=== PATIENT | female | born 1990 | race African-American/Black ===

== ENCOUNTER 2016-10-27 17:41 | Emergency (ER) | payer OTHER ==
[~2016-10-27] VITALS: Ht 165.1 cm; Wt 96.2 kg
[~2016-10-27 17:41] MED LIST: FERROUS GLUCON324 MG PO; KEFLEX500 MG PO; MOTRIN800 MG PO; NAPROSYN500 MG PO; PNV FOLIC ACID1 EACH PO; PRENATAL TABLE1 EAC3 PO; VALTREX50 MG/ML PO; ZOFRAN ODT4 MG PO; ZOFRAN4 MG PO; ZOVIRAX400 MG PO
[2016-10-27 17:44] VITALS: BP 108/81
[2016-10-27 18:11] LABS: HEMATOCRIT 34.6 % (36.0-46.0); MCH 29.1 PG (29.0-34.0); MCHC 32.1 G/DL (30.0-36.0); MCV 90.6 FL (83-99); MEAN PLAT.VOLUME 8.9 uM^3 (9.5-12.4); PLATELET COUNT 468 K/uL (156-360); RBC DIS.WIDTH-CV 17.4 % (11.8-14.6); RBC DIS.WIDTH-SD 54.7 % (39-53); RED BLOOD COUNT 3.82 M/uL (3.80-5.20); WHITE BLOOD COUNT 8.3 K/uL (4.1-10.2)
[2016-10-27 18:20] LABS: CHLORIDE 103 mEq/L (99-109); POTASSIUM 4.1 mEq/L (3.7-5.4); SODIUM 136 mEq/L (136-147)
[2016-10-27 18:22] LABS: GLUCOSE 87 mg/dL (70-99)
[2016-10-27 18:23] LABS: ANION GAP 9 MEQ/L (2-14)
[2016-10-27 18:26] LABS: GFR ESTIMATE (CALCULATED) > 59 mL/min/; UREA NITROGEN (BUN) 9 mg/dL (9-23)
[2016-10-27 18:34] LABS: QUANTITATIVE HCG < 4.0 MIU/ML
[2016-10-27 18:51] LABS: ADD MIUA? YES; BILIRUBIN NEGATIVE; BLOOD MODERATE; COLOR YELLOW ((YELLOW)); GLUCOSE (STRIP) NEGATIVE; KETONES NEGATIVE; LEUKOCYTES SMALL; NITRITE NEGATIVE; PROTEIN (STRIP) NEGATIVE; SPECIFIC GRAVITY 1.012 (1.000-1.030); UROBILINOGEN 0.2 MG/DL (0.2-1.0)
[2016-10-27 19:53] LABS: BACTERIA 1+; EPITHELIAL CELLS 2+; MUCUS 1+; RED BLOOD CELLS 0-5 /HPF (0-5); UCUL ADDED? NO
[2016-10-27 19:54] LABS: CASTS NONE SEEN /LPF; CRYSTALS NONE SEEN
== END 2016-10-27 20:00 | disposition left against medical advice (07) ==
LOC: EME 17:41
DX: N93.9 Abnormal uterine and vaginal bleeding, unspecified (principal); Z53.21 Procedure and treatment not carried out due to patient leaving prior to being seen by health care provider
CPT/HCPCS: 80048; 81003; 84702; 85027

== ENCOUNTER 2016-11-08 17:22 | Emergency (ER) | payer OTHER ==
[~2016-11-08] VITALS: Ht 165.1 cm; Wt 96.0 kg
[2016-11-08 18:30] LABS: HEMATOCRIT 36.3 % (36.0-46.0); MCH 28.7 PG (29.0-34.0); MCHC 31.4 G/DL (30.0-36.0); MCV 91.4 FL (83-99); MEAN PLAT.VOLUME 9.2 uM^3 (9.5-12.4); PLATELET COUNT 451 K/uL (156-360); RBC DIS.WIDTH-CV 16.7 % (11.8-14.6); RBC DIS.WIDTH-SD 53.9 % (39-53); RED BLOOD COUNT 3.97 M/uL (3.80-5.20)
[2016-11-08 18:39] LABS: CHLORIDE 106 mEq/L (99-109); POTASSIUM 4.2 mEq/L (3.7-5.4); SODIUM 140 mEq/L (136-147)
[2016-11-08 18:42] LABS: GLUCOSE 84 mg/dL (70-99)
[2016-11-08 18:43] LABS: ANION GAP 10 MEQ/L (2-14)
[2016-11-08 18:45] LABS: ALKALINE PHOSPHATASE 71 IU/L (3-129); GFR ESTIMATE (CALCULATED) > 59 mL/min/
[2016-11-08 18:46] LABS: UREA NITROGEN (BUN) 7 mg/dL (9-23)
[2016-11-08 18:54] LABS: QUANTITATIVE HCG < 4.0 MIU/ML
[2016-11-08 19:05] LABS: ADD MIUA? YES; BILIRUBIN NEGATIVE; BLOOD SMALL; COLOR YELLOW ((YELLOW)); GLUCOSE (STRIP) NEGATIVE; KETONES NEGATIVE; LEUKOCYTES LARGE; NITRITE NEGATIVE; PH, URINE 6.5 (5-8); PROTEIN (STRIP) NEGATIVE; SPECIFIC GRAVITY 1.017 (1.000-1.030); UROBILINOGEN 0.2 MG/DL (0.2-1.0)
[2016-11-08 19:07] LABS: TOTAL BILIRUBIN 0.3 mg/dL (0.0-1.0)
[2016-11-08 19:49] LABS: BACTERIA 1+; CASTS NONE SEEN /LPF; CRYSTALS NONE SEEN; EPITHELIAL CELLS 1+; MUCUS 1+; UCUL ADDED? NO; WHITE BLOOD CELLS 20-30 /HPF (0-5)
[2016-11-08] MEDS ORDERED: KEFLEX500 MG PO (20:38)
[2016-11-08] MEDS ORDERED: PYRIDIUM100 MG PO (20:39)
[2016-11-08 21:20] VITALS: BP 126/92
== END 2016-11-08 21:22 | disposition home or self-care (01) ==
LOC: EME 17:22
DX: N39.0 Urinary tract infection, site not specified (principal); R31.9 Hematuria, unspecified
CPT/HCPCS: 80053; 81003; 84702; 85027; 87086; 99281; 99284

== ENCOUNTER 2016-11-09 20:21 | Emergency (ER) | payer OTHER ==
[~2016-11-09] VITALS: Ht 165.1 cm; Wt 95.7 kg
[~2016-11-09 20:21] MED LIST changes: +PYRIDIUM100 MG PO
[2016-11-09 20:23] VITALS: BP 140/85
== END 2016-11-09 22:11 | disposition left against medical advice (07) ==
LOC: EME 20:21
DX: R10.9 Unspecified abdominal pain (principal); Z53.21 Procedure and treatment not carried out due to patient leaving prior to being seen by health care provider
CPT/HCPCS: 80053; 81003; 84702; 85027

== ENCOUNTER 2017-09-30 18:33 | Emergency (ER) | payer OTHER ==
[~2017-09-30] VITALS: Ht 165.1 cm; Wt 84.0 kg
[2017-09-30 19:19] LABS: HEMATOCRIT 32.4 % (36.0-46.0); MCH 29.1 PG (29.0-34.0); MCHC 32.7 G/DL (30.0-36.0); MEAN PLAT.VOLUME 8.6 uM^3 (9.5-12.4); PLATELET COUNT 429 K/uL (156-360); RBC DIS.WIDTH-CV 17.4 % (11.8-14.6); RBC DIS.WIDTH-SD 57.1 % (39-53); RED BLOOD COUNT 3.64 M/uL (3.80-5.20); WHITE BLOOD COUNT 8.7 K/uL (4.1-10.2)
[2017-09-30 19:33] LABS: CHLORIDE 104 mEq/L (99-109); POTASSIUM 3.7 mEq/L (3.7-5.4); SODIUM 135 mEq/L (136-147)
[2017-09-30 19:35] LABS: GLUCOSE 84 mg/dL (70-99)
[2017-09-30 19:36] LABS: ANION GAP 7 MEQ/L (2-14)
[2017-09-30 19:37] LABS: TOTAL BILIRUBIN 0.3 mg/dL (0.0-1.0)
[2017-09-30 19:39] LABS: ALKALINE PHOSPHATASE 52 IU/L (3-129); GFR ESTIMATE (CALCULATED) > 59 mL/min/
[2017-09-30 19:40] LABS: UREA NITROGEN (BUN) 6 mg/dL (9-23)
[2017-09-30 20:09] LABS: QUANTITATIVE HCG 78451.6 MIU/ML
[2017-09-30 20:12] LABS: ADD MIUA? YES; BILIRUBIN SMALL; BLOOD NEGATIVE; COLOR AMBER ((YELLOW)); GLUCOSE (STRIP) NEGATIVE; KETONES 20; LEUKOCYTES TRACE; NITRITE NEGATIVE; PROTEIN (STRIP) 30; SPECIFIC GRAVITY 1.036 (1.000-1.030)
[2017-09-30 21:24] LABS: EPITHELIAL CELLS 3+ /HPF; MUCUS 2+ /LPF; RED BLOOD CELLS RARE /HPF (0-5); WHITE BLOOD CELLS 0-5 /HPF (0-5)
[2017-09-30 21:25] LABS: AMORPHOUS URATES CRYSTALS 1+; BACTERIA RARE /HPF; CASTS NONE SEEN /LPF; CRYSTALS PRESENT; UCUL ADDED? NO
[2017-09-30] MEDS ORDERED: ZOFRAN ODT4 MG PO (21:39)
[2017-09-30 22:00] VITALS: BP 135/72
== END 2017-09-30 22:05 | disposition home or self-care (01) ==
LOC: EME 18:33
DX: O26.891 Other specified pregnancy related conditions, first trimester (principal); R10.2 Pelvic and perineal pain; O21.9 Vomiting of pregnancy, unspecified; Z3A.01 Less than 8 weeks gestation of pregnancy
CPT/HCPCS: 76801; 80053; 81003; 84702; 85027; 99281; 99284